=== PATIENT | male | born 1950 | race Caucasian/White ===

== ENCOUNTER 2019-04-16 16:27 | Outpatient (REF) | payer MEDICARE, SELFPAY ==
[2019-04-16 19:11] LABS: ALT 54 U/L (16-63); Anion Gap 9.7 mmol/L (3-11); BUN 15 mg/dL (7-18); CO2 26.3 mmol/L (21.0-32.0); CREATININE 1.16 mg/dL (0.70-1.30); Calcium 9.1 mg/dL (8.5-10.1); Chloride 103 mmol/L (98-107); Glucose 93 mg/dL (70-100); LDL CHOLESTEROL 82 mg/dL (<100); Sodium 139 mmol/L (136-145); TSH 5.87 uIU/mL (0.36-3.74)
== END 2019-04-16 16:47 ==
LOC: NCHCN 16:27
PROVIDERS: PCP Internal Medicine; Visit Provider Internal Medicine
DX: I10 Essential (primary) hypertension (principal); I25.2 Old myocardial infarction
CPT/HCPCS: 80048; 83721; 84443; 84460

== ENCOUNTER 2020-10-23 18:31 | Outpatient (REF) | payer MEDICARE, SELFPAY ==
[2020-10-23 19:24] LABS: HCT 39.6 % (40.0-50.0); HGB 13.5 g/dL (13.5-17.5); MCH 33.1 pg (27.0-33.0); MCHC 34.1 % (32.0-36.0); MCV 97.1 fL (80-95); MPV 9.7 fL (8.0-11.0); Platelet Count 221 10^3/uL (130-400); RBC 4.08 10^6/uL (4.36-5.78); RDW 13.7 % (11.8-14.1); RDW-SD 49.1 fL; WBC 7.99 10^3/uL (4.4-10.8)
[2020-10-23 20:03] LABS: ALT 36 U/L (16-63); AST 23 U/L (15-37); Albumin 4.2 g/dL (3.4-5.0); Alkaline Phosphatase 77 U/L (46-116); Anion Gap 8.6 mmol/L (3-11); BUN 19 mg/dL (7-18); Bilirubin, Total 1.6 mg/dL (0.2-1.0); CO2 28.4 mmol/L (21.0-32.0); CREATININE 1.2 mg/dL (0.70-1.30); Calcium 8.8 mg/dL (8.5-10.1); Calculated LDL 95 mg/dL (<100); Chloride 101 mmol/L (98-107); Cholesterol 162 mg/dL (<200); Ferritin 233 ng/mL (26-388); Glucose 92 mg/dL (74-106); HDL Cholesterol 52 mg/dL (40-60); Potassium 3.8 mmol/L (3.5-5.1); Sodium 138 mmol/L (136-145); Total Protein 7.5 g/dL (6.4-8.2); Triglyceride 79 mg/dL (<150)
[2020-10-23 20:04] LABS: Vitamin B12 < 80 pg/mL (193-986)
== END 2020-10-23 18:32 | disposition home or self-care (01) ==
LOC: NCHCN 18:31
PROVIDERS: PCP Internal Medicine; Visit Provider Internal Medicine
DX: R16.0 Hepatomegaly, not elsewhere classified (principal); E03.9 Hypothyroidism, unspecified; E78.5 Hyperlipidemia, unspecified; G60.9 Hereditary and idiopathic neuropathy, unspecified; E83.119 Hemochromatosis, unspecified; R73.03 Prediabetes; I25.2 Old myocardial infarction
CPT/HCPCS: 80053; 80061; 85027; 82607; 82728; 83036; 84443

== ENCOUNTER 2021-08-08 18:15 | Outpatient (REF) | payer MEDICARE, SELFPAY ==
[2021-08-08 22:06] LABS: LDL CHOLESTEROL 71 mg/dL (<100); TSH 8.08 uIU/mL (0.36-3.74); Vitamin B12 134 pg/mL (193-986)
== END 2021-08-08 18:16 | disposition home or self-care (01) ==
LOC: NCHCN 18:15
PROVIDERS: PCP Internal Medicine; Visit Provider Internal Medicine
DX: E03.9 Hypothyroidism, unspecified (principal); R73.03 Prediabetes; I10 Essential (primary) hypertension; E78.5 Hyperlipidemia, unspecified; G62.9 Polyneuropathy, unspecified
CPT/HCPCS: 83721; 82607; 84443

== ENCOUNTER 2021-08-09 17:05 | Outpatient (REF) | payer MEDICARE, SELFPAY | END 2021-08-09 17:06 | disposition home or self-care (01) | LOC: NCHCN 17:05 | PROVIDERS: PCP Internal Medicine; Visit Provider Internal Medicine ==

== ENCOUNTER 2021-08-09 17:54 | Outpatient (REF) | payer MEDICARE, SELFPAY ==
[2021-08-09 20:07] LABS: Vitamin B12 121 pg/mL (193-986)
[2021-08-11 17:59] LABS: Tissue Transglutaminase Ab IgA <1.2 U/mL
[2021-08-13 09:50] LABS: IgA 351 mg/dL (85-499)
[2021-08-13 11:48] LABS: Intrinsic Factor Blocking Ab Negative (Negative)
== END 2021-08-09 17:55 | disposition home or self-care (01) ==
LOC: NCHCN 17:54
PROVIDERS: PCP Internal Medicine; Visit Provider Internal Medicine
DX: E53.8 Deficiency of other specified B group vitamins (principal); G60.9 Hereditary and idiopathic neuropathy, unspecified
CPT/HCPCS: 82784; 82607; 83516; 86340

== ENCOUNTER 2021-10-24 17:06 | Outpatient (REF) | payer MEDICARE, SELFPAY ==
[2021-10-24 21:25] LABS: TSH 1.22 uIU/mL (0.36-3.74); Vitamin B12 431 pg/mL (193-986)
== END 2021-10-24 17:07 | disposition home or self-care (01) ==
LOC: NCHCN 17:06
PROVIDERS: PCP Internal Medicine; Visit Provider Internal Medicine
DX: E03.9 Hypothyroidism, unspecified (principal); E53.8 Deficiency of other specified B group vitamins
CPT/HCPCS: 82607; 84443

== ENCOUNTER 2022-10-17 17:22 | Outpatient (REF) | payer MEDICARE, SELFPAY ==
[2022-10-17 19:16] LABS: HCT 44.4 % (40.0-50.0); HGB 15.3 g/dL (13.5-17.5); MCH 31.5 pg (27.0-33.0); MCHC 34.5 % (32.0-36.0); MCV 91 fL (80-95); MPV 9.3 fL (8.0-11.0); Platelet Count 210 10^3/uL (130-400); RBC 4.86 10^6/uL (4.36-5.78); RDW 12.5 % (11.8-14.1); RDW-SD 41.5 fL; WBC 7.81 10^3/uL (4.4-10.8)
[2022-10-17 20:18] LABS: ALT 43 U/L (16-63); Anion Gap 8.8 mmol/L (3-11); BUN 17 mg/dL (7-18); CO2 28.2 mmol/L (21.0-32.0); CREATININE 1.2 mg/dL (0.70-1.30); Calcium 8.9 mg/dL (8.5-10.1); Calculated LDL 89 mg/dL (<100); Chloride 103 mmol/L (98-107); Cholesterol 157 mg/dL (<200); Estimated GFR 65.46 (mL/min/1.73m2); Glucose 101 mg/dL (74-106); HDL Cholesterol 52 mg/dL (40-60); Potassium 4.2 mmol/L (3.5-5.1); Sodium 140 mmol/L (136-145); Triglyceride 83 mg/dL (<150); Vitamin B12 494 pg/mL (193-986)
[2022-10-17 22:29] LABS: Creatine Kinase 145 U/L (39-308)
== END 2022-10-17 17:23 | disposition home or self-care (01) ==
LOC: NCHCN 17:22
PROVIDERS: PCP Internal Medicine; Visit Provider Internal Medicine
DX: E78.5 Hyperlipidemia, unspecified (principal); E53.8 Deficiency of other specified B group vitamins; R73.03 Prediabetes
CPT/HCPCS: 80048; 80061; 82550; 85027; 82607; 84460

== ENCOUNTER 2023-11-07 18:10 | Outpatient (REF) | payer MEDICARE, SELFPAY ==
[2023-11-07 19:40] LABS: ALT 37 U/L (16-63); Anion Gap 7.2 mmol/L (3-11); BUN 15 mg/dL (7-18); CO2 25.8 mmol/L (21.0-32.0); CREATININE 1.1 mg/dL (0.70-1.30); Calcium 9.5 mg/dL (8.5-10.1); Calculated LDL 82 mg/dL (<100); Chloride 105 mmol/L (98-107); Cholesterol 161 mg/dL (<200); Estimated GFR 72.22 (mL/min/1.73m2); Glucose 102 mg/dL (74-106); HDL Cholesterol 66 mg/dL (40-60); Potassium 3.7 mmol/L (3.5-5.1); Sodium 138 mmol/L (136-145); TSH 3.89 uIU/Ml (0.36-3.74); Triglyceride 67 mg/dL (<150); Vitamin B12 349 pg/mL (193-986)
[2023-11-07 19:57] LABS: Creatine Kinase 141 U/L (39-308)
== END 2023-11-07 18:11 | disposition home or self-care (01) ==
LOC: NCHCN 18:10
PROVIDERS: PCP Internal Medicine; Visit Provider Internal Medicine
DX: E78.5 Hyperlipidemia, unspecified (principal); I10 Essential (primary) hypertension; E03.9 Hypothyroidism, unspecified; E53.8 Deficiency of other specified B group vitamins
CPT/HCPCS: 80048; 80061; 82550; 82607; 84443; 84460